=== PATIENT | female | born 1980 | race Caucasian/White ===

== ENCOUNTER 2016-09-23 00:46 | Emergency (ER) | payer MEDICAID, SELFPAY ==
[~2016-09-23] VITALS: Ht 149.9 cm; Wt 109.8 kg
[2016-09-23] MEDS ORDERED: DEXAMETHASONE 4 MG/ML, 5ML ONE (01:58)
[2016-09-23] MEDS ORDERED: KETOROLAC 30 MG/1 ML ONE (01:58)
[2016-09-23] MEDS ORDERED: LIDOCAINE 1%, 20ML ONE (01:58)
[2016-09-23] MEDS ORDERED: CEFTRIAXONE 1,000 MG ONE (01:58)
[2016-09-23] MEDS ORDERED: CEFTRIAXONE 1,000 MG IM ONE (02:00)
[2016-09-23] MEDS ORDERED: DEXAMETHASONE 4 MG/ML, 1ML IM ONE (02:00)
[2016-09-23] MEDS ORDERED: KETOROLAC 30 MG/1 ML IM ONE (02:00)
[2016-09-23 03:24] VITALS: BP 133/79
== END 2016-09-23 03:27 | disposition home or self-care (01) ==
LOC: ED 03:21
DX: N92.0 Excessive and frequent menstruation with regular cycle (principal); J01.00 Acute maxillary sinusitis, unspecified; L04.0 Acute lymphadenitis of face, head and neck; E66.9 Obesity, unspecified
CPT/HCPCS: 36415; 84703; 85025; 96372; 99284; J0696; J1100; J1885

== ENCOUNTER 2016-11-07 20:39 | Observation (INO) | payer MEDICAID ==
[~2016-11-07] VITALS: Ht 149.9 cm; Wt 112.4 kg
[2016-11-07] MEDS ORDERED: SODIUM CHLORIDE 0.9% 1,000ML IVBOLUS ONE (21:30)
[2016-11-07] MEDS ORDERED: SODIUM CHLORIDE FLUSH 10ML SYR IVF ONE (21:30)
[2016-11-07] MEDS ORDERED: ONDANSETRON 2MG/ML, 2ML IVPush ONE (21:30)
[2016-11-07] MEDS ORDERED: ONDANSETRON 2MG/ML, 2ML ONE (21:31)
[2016-11-07] MEDS ORDERED: HYDROmorphone 1 MG/ML, 1ML ONE ×2 (21:31→22:02)
[2016-11-07] MEDS: HYDROmorphone 1 MG/ML, 1ML IVPush PRN ×2 (21:40→22:05)
[2016-11-07 21:59] LABS: ASPARTATE AMINO TRANSFERASE 9 U/L (15-37); BLOOD UREA NITROGEN 12 mg/dL (7-18)
[2016-11-07] MEDS ORDERED: KETOROLAC 30 MG/1 ML ONE (23:32)
[2016-11-08] MEDS ORDERED: KETOROLAC 30 MG/1 ML IVPush ONE
[2016-11-08] MEDS ORDERED: D5%-0.45% NACL 1,000 ML IV ONE (00:59)
[2016-11-08] MEDS ORDERED: SODIUM CHLORIDE FLUSH 10ML SYR IVF PRN (01:00)
[2016-11-08] MEDS ORDERED: HYDROmorphone 1 MG/ML, 1ML IVPush PRN (01:00)
[2016-11-08] MEDS ORDERED: ONDANSETRON 2MG/ML, 2ML IVPush PRN ×3 (01:00→08:00)
[2016-11-08] MEDS ORDERED: CEFOTETAN PMX 2GM/50ML 50 ML IV ONE (01:00)
[2016-11-08] MEDS ORDERED: HYDROmorphone 1 MG/ML, 1ML ONE ×3 (01:11→06:52)
[2016-11-08 01:15] VITALS: BP 96/62
[2016-11-08] MEDS ORDERED: BUPIVACAINE/PF-EPI 0.5% 1:200K ONE (01:29)
[2016-11-08 02:18] VITALS: BP 96/62
[2016-11-08] MEDS ORDERED: BUPIVACAINE/PF-EPI 0.5% 1:200K INFIL ONE ×2 (03:56)
[2016-11-08] MEDS ORDERED: MIDAZOLAM 1 MG/ML, 2ML ONE (04:42)
[2016-11-08] MEDS ORDERED: FENTANYL PF 250 MCG/5ML ONE (04:42)
[2016-11-08] MEDS ORDERED: METOCLOPRAMIDE 5 MG/ML, 2ML IV PRN (05:00)
[2016-11-08] MEDS ORDERED: OXYcodone 5 MG/5 ML ORAL.SOL UDC PO PRN (05:00)
[2016-11-08] MEDS ORDERED: PROMETHAZINE 25 MG/ML, 1ML IV PRN (05:00)
[2016-11-08] MEDS ORDERED: MEPERIDINE/PF 25MG/0.5ML IVPush PRN (05:00)
[2016-11-08] MEDS ORDERED: ACETAMINOPHEN 325 MG TABLET PO PRN (05:00)
[2016-11-08] MEDS ORDERED: ACETAMINOPHEN 650 MG/20.3 ML UDC ONE (06:02)
[2016-11-08] MEDS ORDERED: FENTANYL PF 100 MCG/2ML ONE (06:02)
[2016-11-08] MEDS ORDERED: OXYcodone 5 MG/5 ML ORAL.SOL UDC ONE (06:03)
[2016-11-08] MEDS: FENTANYL PF 100 MCG/2ML IV PRN ×3 (06:04→06:20)
[2016-11-08] MEDS: HYDROmorphone 1 MG/ML, 1ML IV PRN ×5 (06:32→07:01)
[2016-11-08 07:44] VITALS: BP 123/49
[2016-11-08] MEDS ORDERED: LACTATED RINGERS 1,000 ML IV SCH (08:00)
[2016-11-08] MEDS ORDERED: MORPHINE SULFATE 4 MG/ML, 1ML IVPush PRN (08:00)
[2016-11-08] MEDS ORDERED: OXYcodone/APAP 5/325MG TABLET PO PRN (08:00)
[2016-11-08] MEDS: HYDROcodone/APAP 5/325 TABLET PO PRN ×3 (10:18→15:01)
[2016-11-08 13:31] VITALS: BP 145/75
[2016-11-08 15:26] VITALS: BP 139/58
[2016-11-08] MEDS ORDERED: ONDA4TAB7 PO (15:50)
[2016-11-08] MEDS ORDERED: OXYC-302 PO (15:50)
[2016-11-08] MEDS ORDERED: CEPH-368 PO (15:51)
[2016-11-08] MEDS ORDERED: ROCURONIUM 10 MG/ML ONE (16:26)
[2016-11-08] MEDS ORDERED: DEXAMETHASONE 4 MG/ML, 1ML ONE (16:26)
[2016-11-08] MEDS ORDERED: SUCCINYLCHOLINE 20 MG/ML, 10ML ONE (16:26)
[2016-11-08] MEDS ORDERED: GLYCOPYRROLATE 0.2MG/1ML ONE (16:26)
[2016-11-08] MEDS ORDERED: PROPOFOL 10 MG/ML, 20ML ONE (16:26)
[2016-11-08] MEDS ORDERED: NEOSTIGMINE 1 MG/ML, 10ML ONE (16:26)
[2016-11-08] MEDS ORDERED: ONDANSETRON 2MG/ML, 2ML ONE (16:26)
== END 2016-11-08 16:10 | disposition home or self-care (01) ==
LOC: ED 23:52 → INTOOBSV 11-08 00:52 → EDIP 11-08 00:52 → 4NOR 11-08 01:05 → DCLOUNGE 11-08 16:00
PROVIDERS: ADMIT Surgery; ATTEND Surgery
DX: K35.80 Unspecified acute appendicitis (principal); E66.01 Morbid (severe) obesity due to excess calories
CPT/HCPCS: 36415; 44970; 74176; 76830; 80053; 81003; 84703; 85025; 88304; 96365; 96375; 96376; 99285; G0378; J0330; J1100; J1170; J1885; J2250; J2405; J2704; J2710; J3010; J7030; J7120; S0074; J3490

== ENCOUNTER 2016-11-15 20:15 | Emergency (ER) | payer MEDICAID ==
[~2016-11-15] VITALS: Ht 152.4 cm; Wt 109.0 kg
[~2016-11-15 20:15] MED LIST: CEPH-368 PO; ONDA4TAB7 PO; OXYC-302 PO
[2016-11-15] MEDS ORDERED: ONDANSETRON 2MG/ML, 2ML ONE (20:48)
[2016-11-15] MEDS ORDERED: MORPHINE SULFATE 4 MG/ML, 1ML ONE ×2 (20:48→23:06)
[2016-11-15] MEDS ORDERED: ONDANSETRON 2MG/ML, 2ML IVPush ONE (21:00)
[2016-11-15] MEDS ORDERED: SODIUM CHLORIDE 0.9% 1,000ML IVBOLUS ONE (21:00)
[2016-11-15] MEDS: MORPHINE SULFATE 4 MG/ML, 1ML IVPush PRN ×2 (21:10→23:08)
[2016-11-15 21:25] LABS: HEMATOCRIT 37.5 % (34.6-47.8); HEMOGLOBIN 12.1 g/dL (11.7-16.4); WHITE BLOOD COUNT 7.4 x10^3/uL (3.4-10)
[2016-11-15 21:28] LABS: ASPARTATE AMINO TRANSFERASE 18 U/L (15-37); BLOOD UREA NITROGEN 9 mg/dL (7-18)
[2016-11-15] MEDS ORDERED: OMNIPAQUE 350 MG/ML, 100ML BOTTLE ONE (22:04)
[2016-11-15 23:26] VITALS: BP 122/76
== END 2016-11-15 23:34 | disposition home or self-care (01) ==
LOC: ED 22:07
DX: R10.31 Right lower quadrant pain (principal); R42 Dizziness and giddiness; J45.909 Unspecified asthma, uncomplicated; Z90.49 Acquired absence of other specified parts of digestive tract
CPT/HCPCS: 36415; 74177; 80053; 81001; 83690; 84703; 85025; 87086; 96361; 96374; 96375; 96376; 99285; J2405; J7030; Q9967

== ENCOUNTER 2017-03-05 22:57 | Inpatient (IN) | payer MEDICAID ==
[~2017-03-05] VITALS: Ht 149.9 cm; Wt 124.6 kg
[2017-03-05] MEDS ORDERED: LORazepam 2 MG/ML, 1ML ONE (23:19)
[2017-03-05 23:24] LABS: HEMATOCRIT 40.7 % (34.6-47.8); HEMOGLOBIN 13.8 g/dL (11.7-16.4); WHITE BLOOD COUNT 9.9 x10^3/uL (3.4-10)
[2017-03-05] MEDS ORDERED: LORazepam 2 MG/ML, 1ML IVP ONE (23:30)
[2017-03-05] MEDS ORDERED: SODIUM CHLORIDE FLUSH 10ML SYR IVF ONE (23:30)
[2017-03-05 23:34] LABS: BLOOD UREA NITROGEN 14 mg/dL (7-18)
[2017-03-05 23:38] LABS: IS PT STATUS REG ER OR PRE ER? YES
[2017-03-06] MEDS ORDERED: CEFOTETAN PMX 1GM/50ML 50 ML ONE (00:22)
[2017-03-06] MEDS ORDERED: CEFOTETAN PMX 1GM/50ML 50 ML IV ONE (00:30)
[2017-03-06] MEDS ORDERED: AZITHROMYCIN 500 MG in SODIUM CHLORIDE 0.9% 250 ML IV ONE (00:30)
[2017-03-06] MEDS ORDERED: POLYETHYLENE GLYCOL 17 GM PACKET PO PRN (00:30)
[2017-03-06] MEDS ORDERED: BISACODYL 10 MG SUPP PR PRN (00:30)
[2017-03-06] MEDS ORDERED: ACETAMINOPHEN 325 MG TABLET PO PRN (00:30)
[2017-03-06] MEDS ORDERED: SODIUM CHLORIDE 0.9% 1,000ML IVBOLUS ONE (00:30)
[2017-03-06 00:45] VITALS: BP 130/82
[2017-03-06 01:19] VITALS: BP 130/82
[2017-03-06] MEDS: CLINDAMYCIN PMX 600MG/50ML 50 ML IV SCH ×3 (02:51→18:34)
[2017-03-06] MEDS: HEPARIN 5,000 UNITS/ML, 1ML SQ SCH ×3 (02:52→17:51)
[2017-03-06 03:59] VITALS: BP 114/71
[2017-03-06] MEDS: SODIUM CHLORIDE 0.9% 1,000 ML IV SCH ×2 (04:29→17:51)
[2017-03-06 05:26] LABS: HEMATOCRIT 36.7 % (34.6-47.8); HEMOGLOBIN 12.5 g/dL (11.7-16.4); WHITE BLOOD COUNT 11.7 x10^3/uL (3.4-10)
[2017-03-06 05:32] LABS: BLOOD UREA NITROGEN 15 mg/dL (7-18)
[2017-03-06 05:36] LABS: ASPARTATE AMINO TRANSFERASE 14 U/L (15-37)
[2017-03-06 08:05] VITALS: BP 124/60
[2017-03-06] MEDS: SENNA/DOCUSATE TABLET PO SCH (10:40)
[2017-03-06 11:11] LABS: DAU SCREEN DISCLAIMER
[2017-03-06] MEDS ORDERED: GADOBUTROL 10 MMOL/10 ML PFS ONE (12:11)
[2017-03-06 16:20] VITALS: BP 123/74
[2017-03-06 20:09] VITALS: BP 150/82
[2017-03-06] MEDS: ONDANSETRON 2MG/ML, 2ML IVPush PRN (23:22)
[2017-03-07 02:11] VITALS: BP 126/82
[2017-03-07] MEDS: HEPARIN 5,000 UNITS/ML, 1ML SQ SCH ×3 (03:04→18:38)
[2017-03-07] MEDS: CLINDAMYCIN PMX 600MG/50ML 50 ML IV SCH ×3 (03:04→18:38)
[2017-03-07] MEDS: SODIUM CHLORIDE 0.9% 1,000 ML IV SCH ×2 (03:05→15:01)
[2017-03-07] MEDS: ONDANSETRON 2MG/ML, 2ML IVPush PRN (05:29)
[2017-03-07] MEDS: SENNA/DOCUSATE TABLET PO SCH (08:52)
[2017-03-07] MEDS: DIVALPROEX 500 MG TAB.ER.24H PO SCH (11:47)
[2017-03-07 13:45] VITALS: BP 135/71
[2017-03-07 20:07] VITALS: BP 114/76
[2017-03-08] MEDS: SODIUM CHLORIDE 0.9% 1,000 ML IV SCH ×3 (00:46→22:57)
[2017-03-08] MEDS: HEPARIN 5,000 UNITS/ML, 1ML SQ SCH ×3 (01:37→19:24)
[2017-03-08 02:30] VITALS: BP 110/75
[2017-03-08] MEDS: CLINDAMYCIN PMX 600MG/50ML 50 ML IV SCH ×3 (03:04→19:24)
[2017-03-08] MEDS ORDERED: BUTALB/APAP/CAFFEINE 50MG/325MG/40MG PO PRN (05:00)
[2017-03-08] MEDS ORDERED: KETOROLAC 30 MG/1 ML IVPush ONE (05:30)
[2017-03-08] MEDS: DIVALPROEX 500 MG TAB.ER.24H PO SCH (05:52)
[2017-03-08 08:10] VITALS: BP 119/73
[2017-03-08] MEDS ORDERED: DIPHENHYDRAMINE 50 MG/ML, 1ML IVPush ONE (08:30)
[2017-03-08] MEDS ORDERED: METOCLOPRAMIDE 5 MG/ML, 2ML IVPush ONE (08:30)
[2017-03-08] MEDS: SENNA/DOCUSATE TABLET PO SCH (08:33)
[2017-03-08] MEDS ORDERED: KETOROLAC 30 MG/1 ML IVPush PRN ×2 (10:00→16:00)
[2017-03-08] MEDS ORDERED: DIPHENHYDRAMINE 50 MG/ML, 1ML IVPush PRN ×3 (10:00→11:00)
[2017-03-08] MEDS ORDERED: PROCHLORPERAZINE 5 MG/ML, 2ML IVPush PRN ×2 (10:00→10:30)
[2017-03-08] MEDS ORDERED: KETOROLAC 30 MG/1 ML ONE (10:49)
[2017-03-08 16:42] VITALS: BP 129/85
[2017-03-08 20:45] VITALS: BP 138/81
[2017-03-09 00:58] VITALS: BP 110/67
[2017-03-09] MEDS: CLINDAMYCIN PMX 600MG/50ML 50 ML IV SCH ×2 (03:52→10:55)
[2017-03-09] MEDS: HEPARIN 5,000 UNITS/ML, 1ML SQ SCH ×2 (03:52→10:55)
[2017-03-09 04:43] LABS: HEMATOCRIT 34.3 % (34.6-47.8); HEMOGLOBIN 11.4 g/dL (11.7-16.4)
[2017-03-09 05:06] LABS: BLOOD UREA NITROGEN 10 mg/dL (7-18)
[2017-03-09 07:20] VITALS: BP 126/84
[2017-03-09] MEDS: DIVALPROEX 500 MG TAB.ER.24H PO SCH (08:20)
[2017-03-09] MEDS: SENNA/DOCUSATE TABLET PO SCH (08:20)
[2017-03-09] MEDS: SODIUM CHLORIDE 0.9% 1,000 ML IV SCH (09:14)
[2017-03-09 12:13] VITALS: BP 104/68
[2017-03-09] MEDS ORDERED: CLIN300C8 PO (13:17)
[2017-03-09] MEDS ORDERED: DIVA500T4 PO (13:17)
[2017-03-09 14:12] VITALS: BP 145/74
== END 2017-03-09 14:36 | disposition home or self-care (01) | DRG 177 ==
LOC: ED 23:12 → EDIP 03-06 00:07 → 4NOR 03-06 00:49 → DCLOUNGE 03-09 14:20
PROVIDERS: ADMIT Hospitalist; ATTEND Hospitalist
DX: J69.0 Pneumonitis due to inhalation of food and vomit (principal); G93.40 Encephalopathy, unspecified; E66.01 Morbid (severe) obesity due to excess calories; R56.9 Unspecified convulsions; Z68.43 Body mass index [BMI] 50.0-59.9, adult; G43.909 Migraine, unspecified, not intractable, without status migrainosus; J45.909 Unspecified asthma, uncomplicated; R47.02 Dysphasia; R00.0 Tachycardia, unspecified; R09.02 Hypoxemia; Z88.0 Allergy status to penicillin; Z79.899 Other long term (current) drug therapy; Z90.49 Acquired absence of other specified parts of digestive tract
CPT/HCPCS: 36415; 70450; 70553; 71010; 80048; 80053; 80307; 82040; 83880; 84484; 85025; 87040; 93005; 95819; 96374; 96375; A9585; J1644; J1885; J2405; G0479; J0780; J1200; J2060; J2765; J7030; S0074

== ENCOUNTER 2019-10-08 13:53 | Emergency (ER) | payer MEDICAID, OTHER ==
[~2019-10-08] VITALS: Ht 149.9 cm; Wt 109.0 kg
[~2019-10-08 13:53] MED LIST changes: +CLIN300C8 PO; +DIVA500T4 PO
[2019-10-08 14:07] VITALS: BP 172/101
--- NOTE | 2019-10-08 14:40 | NUR ---
ST CATH URINE, SPECIMEN WALKED TO LAB. CALL LIGHT WITHIN REACH, LAB IN TO DRAW.
[2019-10-08 14:54] LABS: BASOPHILS # (AUTO) 0.05 x10^3/uL (0-0.1); BASOPHILS % (AUTO) 1 % (0-1); EOSINOPHILS # (AUTO) 0.16 x10^3/uL (0-0.4); EOSINOPHILS % (AUTO) 2 % (1-7); LYMPHOCYTES # (AUTO) 2.33 x10^3/uL (1-3.4); LYMPHOCYTES % (AUTO) 30 % (22-44); MD NO; MEAN CORPUSCULAR HEMOGLOBIN 27.7 pg (27.0-34.8); MEAN CORPUSCULAR HGB CONC 32.4 g/dL (32.4-35.8); MEAN CORPUSCULAR VOLUME 85.4 fL (80-100); MEAN PLATELET VOLUME 9.4 fL (7.4-10.4); MONOCYTES # (AUTO) 0.43 x10^3/uL (0.2-0.8); MONOCYTES % (AUTO) 6 % (2-9); NEUTROPHILS # (AUTO) 4.74 x10^3/uL (1.8-6.8); NEUTROPHILS % (AUTO) 61 % (42-75); PLATELET COUNT 293 x10^3/uL (130-400); RED BLOOD COUNT 4.19 x10^6/uL (3.82-5.3); RED CELL DISTRIBUTION WIDTH 13.9 % (9.6-15.2)
[2019-10-08 14:54] LABS: MICROSCOPIC AUTO
[2019-10-08 15:06] LABS: ALANINE AMINOTRANSFERASE 20 U/L (12-78); ALBUMIN 3.5 g/dL (3.4-5.0); ANION GAP 6 mmol/L (5-15); CALCIUM 8.8 mg/dL (8.5-10.1); CHLORIDE 104 mmol/L (98-107)
[2019-10-08 15:11] LABS: ALKALINE PHOSPHATASE 51 U/L (45-117); BILIRUBIN,TOTAL 0.3 mg/dL (0.2-1.0); CREATININE 0.68 mg/dL (0.55-1.02); TOTAL PROTEIN 8.1 g/dL (6.4-8.2)
--- NOTE | 2019-10-08 15:51 | NUR ---
Task RN: Discharge instructions given. All questions and concerns addressed. Patient ambulatory with a steady gait. Belongings with patient.
== END 2019-10-08 15:53 | disposition home or self-care (01) ==
LOC: ED 15:34
DX: N93.8 Other specified abnormal uterine and vaginal bleeding (principal); N85.2 Hypertrophy of uterus; I10 Essential (primary) hypertension; E11.9 Type 2 diabetes mellitus without complications; J45.909 Unspecified asthma, uncomplicated; Z90.49 Acquired absence of other specified parts of digestive tract
CPT/HCPCS: 36415; 76830; 80053; 81001; 84703; 85025; 87077; 87086; 87186; 99284

== ENCOUNTER 2020-12-12 05:16 | Emergency (ER) | payer MEDICAID, OTHER ==
[~2020-12-12] VITALS: Ht 149.9 cm; Wt 101.0 kg
[~2020-12-12 05:16] MED LIST changes: -CLIN300C8 PO; +CLIN300C9 PO; -OXYC-302 PO; +OXYC1TAB12 PO
--- NOTE | 2020-12-12 05:35 | NUR ---
PT PRESENTS TO ER FOR CHEST PAIN, PT COMPLAINING OF PAIN RIGHT IN THE MIDDLE OF HER CHEST THAT GOES RIGHT THROUGH HER, PT STATES IT FEELS LIKE HER CHEST IS BEING SQUEEZED, PT ALSO COMPLAINING OF DIZZINESS AND A HEADACHE, PT STATES THESE SYMPTOMS HAVE BEEIN GOING ON FOR AN HOUR AND A HALF NOW (SINCE ABOUT 4AM), PTS AT BEDSIDE
[2020-12-12] MEDS ORDERED: SODIUM CHLORIDE FLUSH 10ML SYR IVF ONE (06:00)
[2020-12-12] MEDS ORDERED: ASPIRIN 81 MG TABLET CHEW PO ONE (06:00)
[2020-12-12] MEDS ORDERED: KETOROLAC 30 MG/1 ML IVPush ONE (06:00)
[2020-12-12] MEDS ORDERED: KETOROLAC 30 MG/1 ML ONE (06:02)
[2020-12-12] MEDS ORDERED: ASPIRIN 81 MG TABLET CHEW ONE (06:02)
[2020-12-12 06:28] LABS: BASOPHILS % (AUTO) 1 % (0-1); EOSINOPHILS % (AUTO) 3 % (1-7); LYMPHOCYTES % (AUTO) 19 % (22-44); MEAN CORPUSCULAR HEMOGLOBIN 30.3 pg (27.0-34.8); MEAN CORPUSCULAR HGB CONC 34.2 g/dL (32.4-35.8); MEAN PLATELET VOLUME 9.3 fL (7.4-10.4); MONOCYTES % (AUTO) 15 % (2-9); NEUTROPHILS % (AUTO) 62 % (42-75); PLATELET COUNT 202 x10^3/uL (130-400); RED BLOOD COUNT 4.31 x10^6/uL (3.82-5.3); RED CELL DISTRIBUTION WIDTH 13.1 % (9.6-15.2)
[2020-12-12 06:40] LABS: ALANINE AMINOTRANSFERASE 22 U/L (12-78); ALBUMIN 3.8 g/dL (3.4-5.0); ANION GAP 6 mmol/L (5-15); CALCIUM 9.1 mg/dL (8.5-10.1); CHLORIDE 107 mmol/L (98-107); CREATININE 0.53 mg/dL (0.55-1.02)
[2020-12-12 06:45] LABS: ALKALINE PHOSPHATASE 52 U/L (45-117); BILIRUBIN,TOTAL 0.4 mg/dL (0.2-1.0); TOTAL PROTEIN 8.4 g/dL (6.4-8.2); TROPONIN I < 0.015 ng/mL (0.000-0.045)
--- NOTE | 2020-12-12 06:55 | NUR ---
REPORT FROM TIMA. CXR AT BEDSIDE.
--- NOTE | 2020-12-12 08:43 | NUR ---
pattern changer note: Pt resting in bed, c/o 12/18 CP, reports no relief from meds given. made aware.
--- NOTE | 2020-12-12 09:22 | NUR ---
ASSUMED CARE OF PT FROM HANNAH SAMPSON.
[2020-12-12 09:23] LABS: TROPONIN I < 0.015 ng/mL (0.000-0.045)
[2020-12-12] MEDS ORDERED: HYDROcodone/APAP 5/325 TABLET ONE (09:23)
[2020-12-12] MEDS ORDERED: HYDROcodone/APAP 5/325 TABLET PO ONE (09:30)
[2020-12-12 09:32] VITALS: BP 130/82
--- NOTE | 2020-12-12 10:02 | NUR ---
PT REPORTS MIINIMAL RELIEF WITH PAIN MEDS SO FAR BUT PAIN IS TOLERABLE, NO NEGATIVE EFFECTS S/P PAIN RANCH RIDER, PT DRESSED & PACING IN ROOM PRIOR TO AWAITING DC INSTRUCTIONS, NAD, SO AT BS, CALL LIGHT WITHIN REACH.
--- NOTE | 2020-12-12 10:27 | NUR ---
Patient given discharge instructions and Rx, they have confirmed that they understand the instructions. Patient ambulatory with steady gait. NAD, all questions answered appropriately, denies additional needs at this time. No personal belongings left in room after discharge.
== END 2020-12-12 10:38 | disposition home or self-care (01) ==
LOC: ED 07:27
DX: R07.89 Other chest pain (principal); I10 Essential (primary) hypertension; E11.9 Type 2 diabetes mellitus without complications
CPT/HCPCS: 36415; 71045; 80053; 83690; 84484; 84703; 85025; 85379; 93005; 96374; 99285; J1885